=== PATIENT | female | born 1945 | race Caucasian/White ===

== ENCOUNTER 2016-08-06 03:05 | Observation (INO) | payer OTHER ==
[~2016-08-06] VITALS: Ht 167.6 cm; Wt 83.4 kg
[~2016-08-06 03:05] MED LIST: AGGRENOX PO; ASPIR-LOW81 MG PO; DILTIAZEM 24HR240 MG PO; HYDROCHLOROTHIA25 MG PO; LISINOPRIL40 MG PO; SIMVASTATIN40 MG PO; ULTRAM50 MG PO; VENLAFAXINE HC150 M1 PO
[2016-08-06 04:08] LABS: ADD MIUA? YES; BILIRUBIN NEGATIVE; BLOOD TRACE; COLOR YELLOW ((YELLOW)); GLUCOSE (STRIP) 250; KETONES 15; LEUKOCYTES SMALL; NITRITE NEGATIVE; PROTEIN (STRIP) 30; SPECIFIC GRAVITY 1.017 (1.000-1.030); UROBILINOGEN 0.2 MG/DL (0.2-1.0)
[2016-08-06 04:21] LABS: BACTERIA RARE; CASTS NONE SEEN /LPF; CRYSTALS NONE SEEN; EPITHELIAL CELLS RARE; MUCUS NONE SEEN; RED BLOOD CELLS 0-5 /HPF (0-5); UCUL ADDED? NO; WHITE BLOOD CELLS 0-5 /HPF (0-5)
[2016-08-06 04:24] LABS: EOSINOPHIL (%) 0.6 % (0-5); EOSINOPHIL COUNT 0.1 K/uL (0-0.3); HEMATOCRIT 36.9 % (36.0-46.0); IMMATURE GRANULOCYTE (%) 0.4 % (0.0-0.7); IMMATURE GRANULOCYTE COUNT 0.4 K/uL; LYMPHOCYTE COUNT 1.9 K/uL (1.0-2.8); MCH 30.6 PG (29.0-34.0); MCHC 33.6 G/DL (30.0-36.0); MCV 91.1 FL (83-99); MEAN PLAT.VOLUME 11.2 uM^3 (9.5-12.4); MONOCYTE (%) 4.7 % (3-12); MONOCYTE COUNT 0.5 K/uL (0-0.8); NEUTROPHIL (%) 76.1 % (45-76); NEUTROPHIL COUNT 8.2 K/uL (1.8-6.4); PLATELET COUNT 258 K/uL (156-360); RBC DIS.WIDTH-CV 12.7 % (11.8-14.6); RBC DIS.WIDTH-SD 41.5 % (39-53); RED BLOOD COUNT 4.05 M/uL (3.80-5.20); WHITE BLOOD COUNT 10.8 K/uL (4.1-10.2)
[2016-08-06 04:38] LABS: CHLORIDE 99 mEq/L (99-109); POTASSIUM 4.4 mEq/L (3.7-5.4); SODIUM 135 mEq/L (136-147)
[2016-08-06 04:40] LABS: GLUCOSE 206 mg/dL (70-99)
[2016-08-06 04:42] LABS: ANION GAP 17 MEQ/L (2-14); TOTAL BILIRUBIN 0.5 mg/dL (0.0-1.0)
[2016-08-06 04:44] LABS: ALKALINE PHOSPHATASE 59 IU/L (3-129); GFR ESTIMATE (CALCULATED) > 59 mL/min/
[2016-08-06 04:45] LABS: UREA NITROGEN (BUN) 19 mg/dL (9-23)
[2016-08-06 04:47] LABS: LIPASE 17 U/L (1.0-51.0); TROP-I INTERPRETATION NEGATIVE; TROPONIN-I < 0.01 ng/mL (0.0-0.30)
[2016-08-06] MEDS ORDERED: BUSPIRONE HCL15 MG PO (06:21)
[2016-08-06] MEDS ORDERED: MATZIM LA240 MG PO (08:38)
[2016-08-06] MEDS ORDERED: AGGRENOX1 CAPSULE PO (08:40)
[2016-08-06] MEDS ORDERED: VENLAFAXINE HC150 M1 PO (08:41)
[2016-08-06 10:58] LABS: TROP-I INTERPRETATION NEGATIVE; TROPONIN-I < 0.01 ng/mL (0.0-0.30)
[2016-08-06 12:43] VITALS: BP 199/84
[2016-08-06 15:08] VITALS: BP 152/78
[2016-08-06 17:32] LABS: TROP-I INTERPRETATION NEGATIVE; TROPONIN-I < 0.01 ng/mL (0.0-0.30)
[2016-08-06 21:25] VITALS: BP 162/72
[2016-08-07 04:03] VITALS: BP 173/80
[2016-08-07 07:01] LABS: HEMATOCRIT 35.4 % (36.0-46.0); MCH 30.4 PG (29.0-34.0); MCHC 32.8 G/DL (30.0-36.0); MCV 92.9 FL (83-99); MEAN PLAT.VOLUME 11.1 uM^3 (9.5-12.4); PLATELET COUNT 277 K/uL (156-360); RBC DIS.WIDTH-CV 13.4 % (11.8-14.6); RBC DIS.WIDTH-SD 45.1 % (39-53); RED BLOOD COUNT 3.81 M/uL (3.80-5.20); WHITE BLOOD COUNT 8.1 K/uL (4.1-10.2)
[2016-08-07 07:26] LABS: ANION GAP 10 MEQ/L (2-14); CHLORIDE 96 MEQ/L (99-109); GFR ESTIMATE (CALCULATED) > 59 mL/min/; SAMPLE HEMOLYSIS CHECK 0; SAMPLE ICTERIC CHECK 0; SAMPLE LIPEMIA CHECK 0; SODIUM 137 MEQ/L (136-147); UREA NITROGEN (BUN) 20 mg/dL (9-23)
[2016-08-07 07:27] LABS: GLUCOSE 110 mg/dL (70-99); POTASSIUM 3.1 MEQ/L (3.7-5.4)
[2016-08-07 07:57] VITALS: BP 149/73
[2016-08-07 12:49] VITALS: BP 159/70
[2016-08-07] MEDS ORDERED: ANTIVERT25 MG PO (17:56)
[2016-08-07 19:27] LABS: Estimated Average Glucose 134 mg/dL (70-123); HEMOGLOBIN A1c (GLYCOHEMOGLOB) 6.3 % HGB (Below 5.7)
== END 2016-08-07 19:02 | disposition home or self-care (01) ==
LOC: EME 03:05 → EDOF 07:54 → 5WEST 08:40
PROVIDERS: Emergency Medicine; Nurse Practitioner Adult Health
DX: R42 Dizziness and giddiness (principal); Z86.73 Personal history of transient ischemic attack (TIA), and cerebral infarction without residual deficits; R11.2 Nausea with vomiting, unspecified; R73.09 Other abnormal glucose; D49.7 Neoplasm of unspecified behavior of endocrine glands and other parts of nervous system; Z88.0 Allergy status to penicillin; Z88.1 Allergy status to other antibiotic agents; Z88.5 Allergy status to narcotic agent
CPT/HCPCS: 70450; 70551; 80048; 80053; 81003; 83036; 83690; 84484; 85025; 85027; 93005; 99281; 99285; G0378; G8987 GO CJ; G8988 GO CH; J1650; J2405; J2765; J7030; S0028